=== PATIENT | female | born 1970 | race Caucasian/White ===

== ENCOUNTER 2024-10-25 07:29 | Emergency (ER) | payer OTHER, SELFPAY ==
[2024-10-25 07:37] VITALS: BP 143/98
[2024-10-25 09:05] LABS: % Basophils 0.6 % (0-2); % Eosinophils 2.1 % (0-6); % Immature Granulocytes 0.2 % (0-0.5); % Lymphocytes 21.1 % (20.5-51.1); Absolute Eosinophils 0.1 10^3/uL (0-0.7); Absolute Lymphocytes 1.1 10^3/uL (1.2-3.4); Absolute Monocytes 0.3 10^3/uL (0.1-0.6); Absolute Neutrophils 3.8 10^3/uL (1.4-6.5); Hemoglobin 14.3 g/dL (12.0-16.0); Mean Corpuscular Hgb 32.4 pg (27.0-31.0); Mean Corpuscular Volume 95.2 fL (81.0-99.0); Mean Platelet Volume 9.7 fL (7.4-10.4); Nucleated Red Blood Cells % 0 %; Platelet Count 229 10^3/uL (130-400); Red Blood Cell Count 4.41 10^6/uL (4.20-5.40); Red Cell Dist. Width 12.4 % (11.5-14.5); White Blood Cell Count 5.4 10^3/uL (4.8-10.8)
[2024-10-25 09:11] LABS: ALT (SGPT) 26 U/L (0-35); AST (SGOT) 23 U/L (14-36); Albumin 4.9 g/dl (3.5-5.0); Alkaline Phosphatase 62 U/L (38-126); Blood Urea Nitrogen 12 mg/dl (7-17); Calcium 9.5 mg/dl (8.4-10.2); Carbon Dioxide 28 mmol/L (22-30); Chloride 104 mmol/L (98-107); Glucose 92 mg/dl (70-99); Potassium 4.3 mmol/L (3.5-5.1); Sodium 140 mmol/L (135-145); Total Bilirubin 0.8 mg/dl (0.2-1.3); Total Protein 7.2 g/dl (6.3-8.2); eGFR > 60.00
[2024-10-25 09:19] LABS: Troponin I < 0.012 ng/ml
[2024-10-25 09:38] LABS: D-Dimer < 0.27 ug/mlFEU (0.00-0.50)
[2024-10-25 09:47] VITALS: BP 122/92
--- NOTE | 2024-10-25 09:57 | ED.GENMED ---
History of Present Illness
General
Chief Complaint: Chest Pain
Source: patient and spouse
Time Seen by Provider: 10/25/24 08:10
History of Present Illness
History of Present Illness:
54-year-old female who awoke this morning with left-sided chest pain. She reports pain is under her left breast and is worse when she moves or breathes. She states that she woke up normally around 5 AM but noticed the pain. She does not suspect
the pain actually woke her up. She does not feel short of breath. No leg swelling. No leg cramping. No patient mitts that her mom 2 years ago and was weighing on her mind. She is not sure if she of a blood clot or what. Patient
denies hemoptysis. No fevers. states that they did travel to [place] but was a few weeks ago and they did fly and did not drive
Past History
Past History
ED Past Medical History: Psychiatric (Bipolar disorder)
ED Past Surgical History:
Phy Exam
Physical Exam
Physical Exam:
CONSTITUTIONAL Patient alert and oriented to person, place and time. Well-appearing. Vital signs reviewed.
HEAD atraumatic, normocephalic.
EYES eyelids normal to inspection, Extraocular muscles intact, Conjunctiva normal, Sclera normal.
NECK normal range of motion, Trachea midline, no jugular venous distention.
RESPIRATORY CHEST No respiratory distress noted, Chest expansion equal, Bilateral breath sounds clear. No focal tenderness noted. No rash.
CARDIOVASCULAR regular rate and rhythm, Heart sounds normal.
ABDOMEN abdomen nontender, Bowel sounds normal. No distention.
BACK normal inspection, no obvious deformities
UPPER EXTREMITY range of motion normal, Motor strength normal, no cyanosis, no edema.
LOWER EXTREMITY range of motion normal, Motor strength normal, no cyanosis, no edema.
NEURO Speech normal, No focal motor deficits, Roshan coma scale 15, Memory normal, Cranial Nerves intact to screening exam.
SKIN skin warm, dry, and normal in color.
Scores
Heart Score for Chest Pain Patients
STEMI patient?: No
History: Slightly or Non-Suspicious
ECG: Normal
Age: >45 - <65 years
Risk Factors: No Risk Factors
Troponin: </= Normal Limit
Heart Score for Chest Pain Patients: 1
Heart Score Risk: 2.5% MACE over next 6 weeks
Course
Orders/Labs/Results
Orders:
Orders
10/25/24 07:30
EKG [Electrocardiogram (*1)] Urgent
Reason for Study: Chest Pain
EKG- Treatment ONCE
10/25/24 08:39
CMP [Comprehensive Metabolic Panel] Urgent
Complete Blood Count/With Diff Urgent
D-Dimer Urgent
Troponin I Urgent
10/25/24 09:54
CR Chest - 2 Views Urgent
Comment:
Reason For Exam: L Cp
10/25/24 10:31
Ketorolac [Toradol] 15 mg IV NOW STA
Abnormal Lab Results
10/25/24
08:39
MCH 32.4 H pg
(27.0-31.0)
Absolute Lymphs (auto) 1.1 L 10^3/uL
(1.2-3.4)
10/25/24 08:39
10/25/24 08:39
Vital Signs
Initial and Last Documented VS:
Initial Vital Signs
Temp Pulse Resp BP Pulse Ox
97.8 F 75 16 143/98 100
10/25/24 07:37 10/25/24 07:37 10/25/24 07:37 10/25/24 07:37 10/25/24 07:37
Last Documented Vital Signs
Temp Pulse Resp BP Pulse Ox
97.8 F 69 15 118/83 100
10/25/24 07:37 10/25/24 11:00 10/25/24 11:00 10/25/24 11:00 10/25/24 10:45
MDM/Problems Addressed
Differential Diagnosis Includes:
Pulmonary embolism, ACS, pericarditis, pneumothorax, musculoskeletal etiology, shingles
MDM/Problems Addressed:
Acute chest pain
*Pulse Oximetry
Patient hypoxic: no
*EKG
Interpreted by ED Provider?: Yes
Interpretation: normal
Rate: normal
Rhythm: sinus
[place]: normal axis
Interval: normal interval
QRS Pattern: normal QRS
Ischemia: no ischemia
*Director Drug Safety Interpretation
Rate: normal
Interpretation: normal
Rhythm: sinus
*Critical Care Note
Total Time (30-74mins, 75-104mins- exclusive of procedures): Not Applicable
Data Reviewed
Source: patient and spouse
Prescriptions/Medications Considered But Not Given:
Consider nitroglycerin but low suspicion for ACS
Patient Management
Escalation/DeEscalation of care consider admission/obs:
Patient appears quite well. EKG normal. D-dimer negative. Troponin negative. Low suspicion for ACS as limited risks and history is not supportive. Despite that, troponin EKG normal. D-dimer negative. Narrow mediastinum so do not suspect
aortic dissection. Okay for discharge outpatient PCP follow-up. Pain is clearly worse when she moves.
ED Attending Note
-
Portions of this chart may have been created with voice recognition software.� Occasional wrong word or��sound alike� substitutions may have occurred due to the inherent limitations of voice recognition software.
Discharge Plan
Departure
Patient Disposition: Home (Routine Discharge)
Date of Disposition: 10/25/24
Time of Disposition: 10:23
Patient with high blood pressure during this ER visit?: Yes
Discharge Problem:
Atypical chest pain
Instructions: Chest Pain PCP Follow Up
Referrals:
UNKNOWN - PT DOES,NOT KNOW [Family Provider] -
Activity Restrictions/Additional Instructions:
\\ Please see cardiology in the next 48 hours for reevaluation. Return immediately for worsening pain, shortness breath, palpitations, sweating, nausea, weakness of any kind, numbness, tingling or any other concerns.
Please see your doctor in the next 3 days for follow-up and reevaluation. Return immediately for worsening symptoms, shortness of breath, coughing up blood or any other concerns. Consider ibuprofen every 6 hours as needed for discomfort.
Interventions
Interventions:
*Risk Screen - Suicide Last Done: 10/25/24 07:37
*General Assessment Last Done: 10/25/24 08:21
*Neglect/Abuse Screening Last Done: 10/25/24 07:37
*ED- Fall Risk Assessment Last Done: 10/25/24 08:21
*ED COVID-19 Vaccine History Last Done: 10/25/24 08:21
*Nursing Disposition Last Done: 10/25/24 11:30
ED- Cardiac Assessment Last Done: 10/25/24 08:21
Discharge Date and Time
Discharge Date/Time: 10/25/24 11:32
Print Language: MACEDONIAN
[2024-10-25 10:06] VITALS: BP 140/92
[2024-10-25] MEDS: TORADOL 15 MG IV (10:43)
[2024-10-25 11:00] VITALS: BP 118/83
== END 2024-10-25 11:32 | disposition home or self-care (01) ==
LOC: EMR 07:29
PROVIDERS: EMERGENCY PHYSICIAN Emergency Medicine
DX: R07.89 Other chest pain (principal)
CPT/HCPCS: 99285; 96374; 71046; 80053; 84484; 85025; 85379; 93005